=== PATIENT | male | born 1995 | race Caucasian/White ===

== ENCOUNTER 2016-11-21 03:09 | Emergency (ER) | payer OTHER ==
[~2016-11-21] VITALS: Ht 182.9 cm; Wt 121.3 kg
[2016-11-21 03:10] VITALS: BP 147/83
[2016-11-21] MEDS ORDERED: SODIUM CHLORIDE FLUSH 10ML SYR IVF ONE (04:00)
[2016-11-21] MEDS ORDERED: DIPH,PERTUSS(ACELL),TET VAC/PF 0.5 ML IM-VACC ONE ×2 (04:00→04:51)
[2016-11-21 04:09] LABS: HEMATOCRIT 44.8 % (39.2-51.8); HEMOGLOBIN 14.9 g/dL (13.7-18.0); WHITE BLOOD COUNT 9.9 x10^3/uL (3.4-10)
[2016-11-21 04:20] LABS: BLOOD UREA NITROGEN 20 mg/dL (7-18)
[2016-11-21] MEDS ORDERED: LIDOCAINE 1%, 20ML SQ ONE (04:30)
[2016-11-21 04:32] LABS: ASPARTATE AMINO TRANSFERASE 22 U/L (15-37)
[2016-11-21] MEDS ORDERED: LIDOCAINE 1%, 20ML ONE (04:52)
[2016-11-21] MEDS ORDERED: OMNIPAQUE 350 MG/ML, 100ML BOTTLE ONE (05:44)
== END 2016-11-21 07:54 | disposition home or self-care (01) ==
LOC: ED 07:48
DX: S01.511A Laceration without foreign body of lip, initial encounter (principal); S30.811A Abrasion of abdominal wall, initial encounter; S50.812A Abrasion of left forearm, initial encounter; S50.811A Abrasion of right forearm, initial encounter; S06.9X1A Unspecified intracranial injury with loss of consciousness of 30 minutes or less, initial encounter; V19.9XXA Pedal cyclist (driver) (passenger) injured in unspecified traffic accident, initial encounter; Y93.55 Activity, bike riding; Y92.488 Other paved roadways as the place of occurrence of the external cause; Y99.8 Other external cause status
CPT/HCPCS: 12011; 36415; 70450; 70486; 72125; 73080; 74177; 80048; 80076; 82040; 83690; 85025; 90471; 90715; 99285; Q9967